=== PATIENT | female | born 1980 | race Caucasian/White ===

== ENCOUNTER 2025-08-23 11:45 | Emergency (ER) | payer OTHER ==
[~2025-08-23] VITALS: Ht 167.6 cm; Wt 64.0 kg
[~2025-08-23 11:45] MED LIST: PHEN100C4 PO
[2025-08-23 11:48] VITALS: O2SAT 98
[2025-08-23 12:50] LABS: BASOPHILS % 0.9 % (0.0-2.0); EOSINOPHILS % 2.2 % (0.0-5.0); HEMATOCRIT. 54.5 % (36.0-48.0); HEMOGLOBIN. 17.8 g/dL (12.0-16.0); LYMPHOCYTES % 36.7 % (20.0-50.0); MEAN PLATELET VOLUME 8.3 fl (7.4-10.4); MONOCYTES % 7.0 % (2.0-8.0); NEUTROPHILS % 53.2 % (40.0-76.0); PLATELET 634 x1000/uL (130-400); RED BLOOD CELL COUNT 5.97 mill/uL (4.2-5.4); RED CELL DISTRIBUTION WIDTH 16.3 % (11.6-14.6)
[2025-08-23 13:07] LABS: CREATININE 0.6 mg/dL (0.6-1.0); ETHANOL BLOOD < 10 mg/dL (<10); UREA NITROGEN BLOOD 7 mg/dL (9-23)
[2025-08-23 14:49] LABS: HCG SCREEN NEGATIVE
[2025-08-23 14:53] LABS: TROPONIN I HIGH SENSITIVITY 19 ng/L (3.0-34)
[2025-08-23 16:13] VITALS: BP 102/70; PULSE 86; RESP 14; TEMP 36.7; O2SAT 98
[2025-08-23 16:35] LABS: CLARITY URINE CLEAR (CLEAR); COLOR URINE YELLOW (YELLOW); GLUCOSE URINE NEGATIVE (NEGATIVE); KETONES URINE NEGATIVE (NEGATIVE); LEUKOCYTE ESTERASE URINE NEGATIVE (NEGATIVE); NITRITE URINE NEGATIVE (NEGATIVE); OCCULT BLOOD URINE 1+ (NEGATIVE); PH URINE 5.5 (4.5-8.0); PROTEIN URINE TRACE (NEGATIVE); SPECIFIC GRAVITY URINE 1.010 (1.005-1.030); UROBILINOGEN URINE 0.2 E.U./dL (0.2-1.0)
[2025-08-23 17:03] LABS: *AMPHETAMINES SCREEN URINE NEGATIVE (NEGATIVE)
[2025-08-23 17:04] LABS: *BARBITURATES SCREEN URINE NEGATIVE (NEGATIVE); *BENZODIAZEPINES SCREEN URINE NEGATIVE (NEGATIVE); *COCAINE SCREEN URINE NEGATIVE (NEGATIVE); CANNABINOID URINE SCREEN NEGATIVE (NEGATIVE); ECSTASY MDMA SCREEN URINE NEGATIVE (NEGATIVE); METHADONE URINE SCREEN NEGATIVE (NEGATIVE); OPIATES URINE SCREEN NEGATIVE (NEGATIVE); PHENCYCLIDINE URINE SCREEN NEGATIVE (NEGATIVE)
[2025-08-23 17:21] LABS: BACTERIA URINE 1+; SQUAMOUS EPITHELIAL CELL URINE 1+ /lpf (RARE/1+)
[2025-08-23 17:22] LABS: WBC URINE 0-2 /hpf (0-2)
== END 2025-08-23 16:44 | disposition home or self-care (01) ==
LOC: ER 11:45
DX: R55 Syncope and collapse (principal); F41.9 Anxiety disorder, unspecified; Z79.899 Other long term (current) drug therapy
CPT/HCPCS: 80305; 80048; 81003; 80320; 82962; 84703; 85025; 84484; 36415; 71045; 70450; 93005; 99285; Z7610; G0480

== ENCOUNTER 2025-08-29 20:04 | Emergency (ER) | payer OTHER ==
[~2025-08-29] VITALS: Ht 172.7 cm; Wt 53.0 kg
[2025-08-29 20:06] VITALS: O2SAT 99
[2025-08-29 20:20] VITALS: TEMP 37.2
[2025-08-29 20:49] LABS: BASOPHILS % 1.0 % (0.0-2.0); EOSINOPHILS % 2.1 % (0.0-5.0); HEMATOCRIT. 50.6 % (36.0-48.0); HEMOGLOBIN. 16.3 g/dL (12.0-16.0); LYMPHOCYTES % 31.6 % (20.0-50.0); MEAN PLATELET VOLUME 8.3 fl (7.4-10.4); MONOCYTES % 7.1 % (2.0-8.0); NEUTROPHILS % 58.2 % (40.0-76.0); PLATELET 608 x1000/uL (130-400); RED BLOOD CELL COUNT 5.58 mill/uL (4.2-5.4); RED CELL DISTRIBUTION WIDTH 15.8 % (11.6-14.6)
[2025-08-29 21:01] LABS: CREATININE 0.6 mg/dL (0.6-1.0); UREA NITROGEN BLOOD 6 mg/dL (9-23)
[2025-08-29 21:02] LABS: ETHANOL BLOOD < 10 mg/dL (<10)
[2025-08-29 21:03] LABS: ASPARTATE AMINOTRANSFERASE 22 IU/L (<34); BILIRUBIN DIRECT 0.1 mg/dL (<=3.0)
[2025-08-29 21:04] LABS: BILIRUBIN TOTAL 0.3 mg/dL (0.1-1.0); PROTEIN TOTAL 6.8 g/dL (6.0-8.3)
[2025-08-29 21:17] LABS: HCG SCREEN NEGATIVE
[2025-08-29] MEDS ORDERED: LORAZEPAM 2MG/ML UD SYRINGE ONE (21:24)
[2025-08-29] MEDS: LORAZEPAM 1MG TABLET PO ONE (21:28)
[2025-08-29] MEDS: LORAZEPAM 2MG/ML UD SYRINGE IV NR (21:30)
[2025-08-29] MEDS: ACETAMINOPHEN 325MG TABLET PO ONE (21:36)
[2025-08-29] MEDS ORDERED: LORA-250 MT (22:31)
[2025-08-29 22:50] VITALS: BP 116/69; PULSE 93; RESP 18; O2SAT 97
== END 2025-08-29 23:10 | disposition home or self-care (01) ==
LOC: ER 20:04
DX: G40.909 Epilepsy, unspecified, not intractable, without status epilepticus (principal); F41.9 Anxiety disorder, unspecified
CPT/HCPCS: 80076; 80048; 80320; 84703; 83735; 85025; 36415; 93005; 96374; 99284; J2060; G0480